=== PATIENT | female | born 1950 | race Hispanic/Latino ===

== ENCOUNTER 2017-10-05 12:51 | Emergency (ER) | payer MEDICAID ==
[~2017-10-05 12:51] MED LIST: ISOVUE-370 76%-LOCM 1 ML ONE
[2017-10-05 13:18] LABS: #Eosinphils 0.4 thou/uL (0.0-0.7); #Lymphocytes 2.3 thou/uL (1.20-3.40); #Monocytes 0.6 thou/uL (0.11-0.59); #Neutrophils 3.9 thou/uL (1.40-6.50); %Basophils 0.5 % (0.0-1.0); %Lymphocytes 31.7 % (21.0-51.0); %Monocytes 7.7 % (0.0-10.0); %Neutrophils 54.2 % (42.0-75.0); Hemoglobin 13.3 g/dL (12.0-16.0); Mean Corpuscular HGB CONC 33.9 g/dL (32.0-36.0); Mean Corpuscular Hemoglobin 30.6 pg (27.0-31.0); Mean Corpuscular Volume 90.2 fl (81.0-99.0); Mean Platelet Volume 7.2 fL (7.4-10.4); Platelet Count 266 thou/uL (130-400); RBC Distribution Width 12.3 % (11.5-14.5); Red Blood Cell (RBC) Count 4.36 mill/uL (4.20-5.40); White Blood Cell (WBC) Count 7.2 thou/uL (4.8-10.8)
[2017-10-05 13:40] LABS: ALT (SGPT) 12 U/L (8-55); AST (SGOT) 16 U/L (5-34); Albumin 3.9 g/dL (3.4-4.8); Alkaline Phosphatase 81 U/L (40-150); Anion Gap 10 mmol/L (10-20); BUN (Urea Nitrogen) 16 mg/dL (9.8-20.1); Bilirubin, Total 0.5 mg/dL (0.2-1.2); Calc. Creatinine Clearance 0 mL/min (70-130); Calcium 8.9 mg/dL (7.8-10.44); Carbon Dioxide 24 mmol/L (23-31); Chloride 111 mmol/L (98-107); Estimated GFR-MDRD 55; Glucose 148 mg/dL (80-115); Potassium 3.9 mmol/L (3.5-5.1); Protein, Total 6.9 g/dL (6.0-8.3); Sodium 141 mmol/L (136-145)
[2017-10-05 14:18] LABS: Bilirubin Negative (Negative); Blood, Urine Trace (Negative); Clarity CLEAR (Clear); Glucose, Urine (Dipstick) Negative (Negative); Leukocyte Small (Negative); Nitrite Negative (Negative); Protein, Urine (Dipstick) Negative (Neg-Trace); Specific Gravity, Urine 1.015 (1.002-1.036); Urobilinogen 0.2 mg/dL (0.2-1.0)
[2017-10-05 14:20] LABS: Bacteria/HPF None Seen HPF (None Seen); Hyaline Casts/LPF 0-3 HYALINE CAST LPF (0-3 Hyaline); Pathc Cast-AUWi Flag 0.29 (0-2.49); Squamous Epithelial 0-3 HPF (0-3)
--- NOTE | 2017-10-05 15:59 | RAD ---
PA AND LATERAL VIEWS CHEST: Date: 10/05/17 HISTORY: Fever. FINDINGS: PA and lateral views of chest obtained. There is mild ectasia of the aorta. The lungs are well aerate d. No evidence of active intrathoracic disease seen. No evidence of effusions, pneumonia, or pneumoth orax seen. IMPRESSION: Normal 2 views chest. POS: [facility]
[2017-10-05 16:08] LABS: CK (CPK) 51 U/L (29-168); Lipase 72 U/L (8-78)
[2017-10-05 16:12] LABS: CKMB 0.8 ng/mL (0-6.6); Troponin I Less than 0.010 ng/mL (< 0.028)
--- NOTE | 2017-10-05 16:25 | CT ---
CONTRAST ENHANCED CT IMAGES ABDOMEN AND PELVIS: 10/05/17 HISTORY: Abdominal pain. Contrast enhanced CT images of the abdomen and pelvis obtained after administration of IV contrast. CT images demonstrate the lung bases to be unremarkable. No evidence of free intraperitoneal air or f luid seen. The liver and spleen are unremarkable. The gallbladder and stomach are unremarkable. The pancreas is unremarkable. Adrenal glands unremarkable. the right kidney contains 9.5 x 9 x 18 mm renal calculus i n the proximal right ureter at the right ureteropelvic junction. This is in the lower pole collecting system. This patient has a moderate to severe dilatation of the lower pole calyces. There is a nonob structed upper pole collecting system on the right as well. Whether there is partial of complete dupl ication of the right collecting system, I cannot determine. Additional nonobstructing calculi also se en in the lower pole of the right kidney. There is massive dilatation and atrophy of the left kidney with massive distention of the calyces. There is an obstructing left ureteropelvic junction calculus measuring up to 13 mm. This is resulting in chronic obstruction and atrophy of the left kidney. The distended left kidney has resulted in a mass-like cystic appearance in the left retroperitoneum. There is no evidence of periaortic lymphadenopathy. Small bowel and colon as well as appendix are unr emarkable. IMPRESSION: 1. 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 There is a large obstructing calculus in the right ureteropelvi c junction. 2. Massively distended left collecting system and marked atrophy of the left kidney suggesting c hronic left sided hydronephrosis. POS: [facility]
--- NOTE | 2017-10-05 16:39 | ULT ---
RIGHT UPPER QUADRANT ULTRASOUND: 10/05/17 HISTORY: Abdominal pain. Multiple longitudinal and transverse images of the right upper quadrant of the abdomen is obtained us ing a multihertz curvilinear transducer. Real time, color flow, and spectral waveform doppler analysi s demonstrates the liver to be unremarkable. Numerous echogenic foci seen within the gallbladder comp atible with numerous gallstones. Common bile duct is of normal size measuring 4.5 mm. The right kidney demonstrates moderate to severe hydronephrosis in the lower pole of the right kidney . Please also see CT abdomen and pelvis dictation. Nonobstructing calculi also seen in the lower pole of the right kidney. The visualized portions of the pancreas is unremarkable. Normal hepatopedal flow is seen in the betty l system. IMPRESSION: 1. Cholelithiasis. 2. Lower pole right moderate to severe hydronephrosis. POS: [facility]
== END 2017-10-05 17:16 | disposition home or self-care (01) ==
LOC: ERS 12:51
DX: N13.2 Hydronephrosis with renal and ureteral calculous obstruction (principal); K80.20 Calculus of gallbladder without cholecystitis without obstruction; N39.0 Urinary tract infection, site not specified
CPT/HCPCS: 36415; 71046; 74177; 76705; 80053; 81003; 81015; 82550; 82553; 83605; 83690; 84484; 85025; 93005

== ENCOUNTER 2017-10-05 22:42 | Emergency (ER) | payer MEDICAID, SELFPAY ==
[2017-10-05] MEDS ORDERED: Promethazine HCl 25 MG/ML VIAL ONE (23:30)
[2017-10-05] MEDS ORDERED: Morphine 10 MG/ML VIAL ONE (23:30)
== END 2017-10-06 01:06 | disposition home or self-care (01) ==
LOC: ERS 22:42
DX: N20.0 Calculus of kidney (principal); Z79.899 Other long term (current) drug therapy
CPT/HCPCS: 96361; 96374; 96375; J2270; J2550